=== PATIENT | female | born 1995 | race Caucasian/White ===

== ENCOUNTER 2018-10-02 21:08 | Emergency (ER) | payer MEDICAID ==
[~2018-10-02] VITALS: Ht 165.1 cm; Wt 99.8 kg
[2018-10-02 21:18] VITALS: Ht 165.1 cm; Wt 99.8 kg
[2018-10-02 22:54] VITALS: BP 111/75
== END 2018-10-02 22:54 | disposition home or self-care (01) ==
LOC: ED 21:08
DX: O99.511 Diseases of the respiratory system complicating pregnancy, first trimester (principal); K59.00 Constipation, unspecified; Z3A.08 8 weeks gestation of pregnancy